=== PATIENT | female | born 1980 | race Caucasian/White ===

== ENCOUNTER 2017-07-11 19:23 | Observation (INO) | payer SELFPAY ==
[2017-07-11] MEDS ORDERED: Morphine 4 MG/ML VIAL ONE (20:25)
[2017-07-11] MEDS ORDERED: Acetaminophen 325 MG TAB PO PRN (21:56)
[2017-07-11] MEDS ORDERED: Morphine 4 MG/ML VIAL SLOW IVP PRN ×2 (21:56→23:04)
[2017-07-11] MEDS ORDERED: Ondansetron ODT 4 MG TAB SL PRN (21:56)
[2017-07-11] MEDS ORDERED: Ondansetron HCl/PF 4 MG/2 ML Vial IVP PRN (21:56)
[2017-07-11] MEDS ORDERED: diphenhydrAMINE 25 MG CAP PO PRN (23:09)
[2017-07-11 23:44] VITALS: BMI 28.3
[2017-07-12 02:11] LABS: #Basophils 0.1 thou/uL (0.0-0.2); #Eosinphils 0.3 thou/uL (0.0-0.7); #Lymphocytes 2.6 thou/uL (1.20-3.40); #Monocytes 0.8 thou/uL (0.11-0.59); #Neutrophils 5.8 thou/uL (1.40-6.50); %Basophils 0.6 % (0.0-1.0); %Lymphocytes 26.9 % (21.0-51.0); %Monocytes 8.4 % (0.0-10.0); %Neutrophils 61.2 % (42.0-75.0); Hemoglobin 12.9 g/dL (12.0-16.0); Mean Corpuscular HGB CONC 35.4 g/dL (32.0-36.0); Mean Corpuscular Hemoglobin 32.3 pg (27.0-31.0); Mean Corpuscular Volume 91.3 fl (81.0-99.0); Mean Platelet Volume 6.6 fL (7.4-10.4); Platelet Count 283 thou/uL (130-400); White Blood Cell (WBC) Count 9.5 thou/uL (4.8-10.8)
[2017-07-12 02:16] LABS: INR-International Normal Ratio 1.1; Prothrombin Time 14.5 SEC (12.0-14.7)
[2017-07-12 02:17] LABS: PTT 31.8 SEC (22.9-36.1)
[2017-07-12 02:30] LABS: ALT (SGPT) 7 U/L (8-55); AST (SGOT) 9 U/L (5-34); Albumin 3.8 g/dL (3.5-5.0); Alkaline Phosphatase 56 U/L (40-150); Anion Gap 7 mmol/L (10-20); BUN (Urea Nitrogen) 10 mg/dL (7.0-18.7); Bilirubin, Total 0.9 mg/dL (0.2-1.2); CK (CPK) 103 U/L (29-168); Calc. Creatinine Clearance 124 mL/min (70-130); Calcium 8.9 mg/dL (7.8-10.44); Carbon Dioxide 28 mmol/L (22-29); Chloride 106 mmol/L (98-107); Estimated GFR-MDRD 89; Glucose 119 mg/dL (70-105); Potassium 3.2 mmol/L (3.5-5.1); Protein, Total 5.8 g/dL (6.0-8.3); Sodium 138 mmol/L (136-145)
--- NOTE | 2017-07-12 04:43 | HP ---
DATE OF ADMISSION: 07/11/2017 The patient was seen and examined on 07/11/2017. CHIEF COMPLAINT: Snake bite. HISTORY OF PRESENT ILLNESS: The patient is a 37-year-old female who presented to [facility] with snake bite to her left foot that happened around 1:30-2:00 p.m. She had signific ant swelling along with bleeding from the puncture site. The pain was 9 to 10/10, more or less const ant, pressure-like. She also had associated swelling in the left leg. No fever, chills, nausea, vom iting, chest pain, or palpitations reported. In the emergency room at [facility], her initial vital signs showed temperature 97.5, respirations 22, pulse rate of 115 with blood pressure 114/86. EKG showed sinus rhythm. Coagulation profile was normal. She received morphine with IV fluids and was transferred to this facility for hospital admis jesus. When she arrived at this facility, the swelling and the pain had somewhat improved. She recei charity another dose of morphine at the emergency room. PAST MEDICAL HISTORY: Reviewed with the patient and none. PAST SURGICAL HISTORY: Reviewed with the patient and none. ALLERGIES: LATEX. CURRENT HOME MEDICATIONS: Reviewed with the patient and none. SOCIAL HISTORY: Currently lives at home with family. No smoking, alcohol or drug use. FAMILY HISTORY: Positive for colon cancer in her mother. REVIEW OF SYSTEMS: The following complete review of systems was negative, unless otherwise mentioned in the HPI or below: Constitutional: Weight loss or gain, ability to conduct usual activities. Sk in: Rash, itching. Eyes: Double vision, pain. ENT/Mouth: Nose bleeding, neck stiffness, pain, te nderness. Cardiovascular: Palpitations, dyspnea on exertion, orthopnea. Respiratory: Shortness of breath, wheezing, cough, hemoptysis, fever or night sweats. Gastrointestinal: Poor appetite, abdom inal pain, heartburn, nausea, vomiting, constipation, or diarrhea. Genitourinary: Urgency, frequenc y, dysuria, nocturia. Musculoskeletal: Pain, swelling. Neurologic/Psychiatric: Anxiety, depressio n. Allergy/Immunologic: Skin rash, bleeding tendency. PHYSICAL EXAMINATION: VITAL SIGNS: As discussed above. GENERAL: A 37-year-old female in mild distress. The pain has significantly improved. HEENT: Head atraumatic, normocephalic. Sclerae are anicteric. Moist mucous membrane, no oral lesio n. NECK: Supple, no JVD, no carotid bruit. LUNGS: Clear to auscultation bilaterally, no wheezing, rales or rhonchi. HEART: S1, S2 present. Regular rate and rhythm. No murmur, rubs, or gallops appreciated. ABDOMEN: Soft, nontender, bowel sounds present. EXTREMITIES: There is swelling of the left foot extending into the left leg. There is tenderness on palpation. Erythema has improved. There was no drainage from the puncture site. There was some nu mbness and tingling on superficial palpation. PSYCHIATRIC: As discussed above. LYMPH NODES: No palpable lymph nodes in the neck and groin. SKIN: As discussed above. PERIPHERAL VASCULAR: As discussed above. LABORATORY FINDINGS: Coagulation profile in normal range. Potassium of 3.2. Fibrinogen was normal. CBC showed WBC 9.5 with hemoglobin of 12.9, platelet 283. EKG by my review as discussed above. IMPRESSION: 1. Snake bite to the left foot, suspected copperhead. 2. Hypokalemia. 3. Chronic kidney disease stage 2. PLAN: The patient is currently admitted to the medical floor. We will continue to monitor. CroFab was not started in the emergency room. We will replace potassium. We will check x-ray of the left f oot. Consult orthopedic per snake bite order set. Acute pain control. No antibiotics needed. Plan of care was discussed with the patient in detail. She stated understanding.
[2017-07-12] MEDS ORDERED: Loperamide HCl 2 MG CAP PO PRN (08:38)
[2017-07-12] MEDS ORDERED: Eucerin (Mineral Oil/Petrolatum,White) 30 gm Jar TOP PRN (08:38)
[2017-07-12] MEDS ORDERED: Senokot 8.6 MG TAB PO PRN (08:38)
[2017-07-12] MEDS ORDERED: Milk Of Magnesia 30 ML UDCUP PO PRN (08:38)
[2017-07-12] MEDS ORDERED: Zolpidem Tartrate 5 MG TAB PO PRN (08:38)
[2017-07-12] MEDS ORDERED: HYDROcodone/Acetaminophen 5/325 mg Tablet PO PRN (08:38)
[2017-07-12] MEDS ORDERED: Acetaminophen 325 MG TAB PO PRN (08:38)
[2017-07-12] MEDS ORDERED: Ondansetron HCl/PF 4 MG/2 ML Vial IVP PRN (08:38)
[2017-07-12] MEDS ORDERED: Chloraseptic Spray 180 ml Bottle PO PRN (08:38)
[2017-07-12] MEDS ORDERED: hydrALAZINE 20 MG/ML VIAL SLOW IVP PRN (08:38)
[2017-07-12] MEDS ORDERED: Artificial Tears 18 DROP/0.9 ML EA EYE PRN (08:38)
[2017-07-12] MEDS ORDERED: Mag-Al 1200 mg/1200 mg/30 ML UDCUP PO PRN (08:38)
[2017-07-12] MEDS ORDERED: Loratadine 10 MG TAB PO PRN (08:38)
[2017-07-12] MEDS ORDERED: Diabetic Tussin 200 MG/10 ML UDCUP PO PRN (08:38)
[2017-07-12] MEDS ORDERED: Ondansetron ODT 4 MG TAB PO PRN (08:38)
[2017-07-12] MEDS ORDERED: Sodium Chloride 0.65% Nasal 44 ML BOT EA NARE PRN (08:38)
[2017-07-12] MEDS ORDERED: Famotidine 20 MG TAB PO SCH (09:00)
--- NOTE | 2017-07-12 09:02 | CON ---
DATE OF CONSULTATION: 07/12/2017 REQUESTING PHYSICIAN: Dr. Malachi Gonzalez CONSULTING PHYSICIAN: Dr. Raghavendra Felix REASON FOR ADMISSION: Snake bites to the left foot. HISTORY OF PRESENT ILLNESS: This is a 37-year-old female who states that she was out yesterday in [facility] with her children building a fort when she stepped in an area where multiple snakes bit her l eft foot. She states this happened around 2 o'clock p.m. She states she believes there were 3-4 sna kes that bit her at once. She states she was wearing slides with socks. She reports swelling along with bleeding from the puncture sites. She states that she tried to express venom at the time. She initially presented to the emergency room in [place] where her vital signs were stable. She rec eived morphine at that time with IV fluids and then was transferred to our facility for hospital admi ssion. When she arrived at our facility, the swelling and pain had somewhat improved. She received morphine in the emergency department. Per patient's history this morning, the patient states that chela phelan was not given CroFab because the symptoms appeared to be improving. She states that CroFab was als o an expensive drug and she elected against this. At the current time, the patient reports some pain that she believes is because the pain meds have recently worn off. Overall, she states she feels be tter from yesterday. PAST SURGICAL HISTORY: Reviewed and negative. PAST SURGICAL HISTORY: Reviewed and negative. ALLERGIES: LATEX. CURRENT HOME MEDICATIONS: Reviewed and negative. SOCIAL HISTORY: The patient currently lives at home with family. She denies any smoking, alcohol or illicit drug use. FAMILY HISTORY: Noncontributory. REVIEW OF SYSTEMS: Ten point review of systems conducted and otherwise negative except for stated ab ove. PHYSICAL EXAMINATION: VITAL SIGNS: Temperature 97.8 degrees, pulse of 92, respiratory rate of 16, blood pressure of 109/73 . GENERAL: The patient is awake and alert and oriented x3. She is in no acute distress. HEENT: Head is normocephalic, atraumatic. NECK: Supple. LUNGS: Breathing is nonlabored. EXTREMITIES: The left lower extremity was examined. There is soft tissue swelling. No significant erythema noted. There is a puncture wound to the lateral heel region that appears to have a superfic ial hematoma. This is less than 0.5 cm in size. No other puncture wounds are visible at the time of my examination. The patient able to actively move her knee, ankle, foot and toes. Sensation decrea sed but intact. No bony tenderness to palpation. Compartments are soft. LABORATORY FINDINGS: Laboratory findings including a CBC show white blood cell count of 9.5, hemoglo bin of 12.9, hematocrit 36.5 and platelets of 283. IMAGING STUDIES: Imaging studies including x-rays of the left foot; the patient has declined x-rays today. ASSESSMENT AND PLAN: Multiple snake bites to the left foot. The patient states these were copperhe ads. At this time, she does appear improved. No antibiotics were given to the patient, nor was CroF ab. Compartments are soft without any evidence of compartment syndrome from an orthopedic standpoint . Please reconsult the Orthopedic Service and we will be happy to answer any questions or see the shahab bower. She is stable from an orthopedic standpoint. Thank you for the consultation.
[2017-07-12] MEDS: Potassium Chloride 20 MEQ TAB PO SCH ×2 (09:14→17:18)
--- NOTE | 2017-07-12 11:14 | PDOC.PN ---
- Subjective Encounter Start Date: 07/12/17 Encounter Start Time: 09:30 Patient seen and examined. No new complaints. No overnight events has left leg pain with walking - Objective MAR Reviewed: Yes Vital Signs & Weight: Vital Signs (12 hours) Temp Pulse Resp BP Pulse Ox 07/12/17 08:10 98 F 80 18 129/81 98 07/12/17 08:00 98 F 80 18 07/12/17 04:22 97.8 F 92 16 109/73 100 07/12/17 00:18 97.7 F 77 20 109/65 99 07/11/17 23:47 98 F 81 16 Weight Weight 165 lb 5.547 oz Result Diagrams: 07/12/17 01:57 07/12/17 01:57 Phys Exam - Physical Examination Constitutional: NAD HEENT: PERRLA, moist MMs, sclera anicteric Neck: no JVD, supple Respiratory: no wheezing, no rales, no rhonchi Cardiovascular: RRR, no significant murmur, no rub Gastrointestinal: soft, non-tender, no distention, positive bowel sounds Musculoskeletal: no edema, pulses present left foot and leg swelling Neurological: non-focal, normal sensation, moves all 4 limbs Psychiatric: normal affect, A&O x 3 Skin: no rash, normal turgor Dx/Plan (1) Swelling of left lower extremity Code(s): M79.89 - OTHER SPECIFIED SOFT TISSUE DISORDERS Status: Acute (2) Hypokalemia Code(s): E87.6 - HYPOKALEMIA Status: Acute (3) Snake bite Code(s): W59.11XA - BITTEN BY NONVENOMOUS SNAKE, INITIAL ENCOUNTER Status: Acute (4) CKD (chronic kidney disease) stage 2, GFR 60-89 ml/min Code(s): N18.2 - CHRONIC KIDNEY DISEASE, STAGE 2 (MILD) Status: Chronic - Plan cont current plan of care * control pain today * monitor swelling * medication reviewed as below * symptomatic treatment * if stable, will consider discharge tomorrow. Review of Systems - Review of Systems Constitutional: negative: fever, chills, sweats, weakness, malaise, other Eyes: negative: Pain, Vision Change, Conjunctivae Inflammation, Eyelid Inflammation, Redness, Other ENT: negative: Ear Pain, Ear Discharge, Nose Pain, Nose Discharge, Nose Congestion, Mouth Pain, Mouth Swelling, Throat Pain, Throat Swelling, Other Respiratory: negative: Cough, Dry, Shortness of Breath, Hemoptysis, SOB with Excertion, Pleuritic Pain, Sputum, Wheezing Cardiovascular: negative: chest pain, palpitations, orthopnea, paroxysmal nocturnal dyspnea, edema, light headedness, other Gastrointestinal: negative: Nausea, Vomiting, Abdominal Pain, Diarrhea, Constipation, Melena, Hematochezia, Other Genitourinary: negative: Dysuria, Frequency, Incontinence, Hematuria, Retention , Other Musculoskeletal: Leg Pain, Foot Pain. negative: Neck Pain, Shoulder Pain, Arm Pain, Back Pain, Hand Pain, Other Neurological: negative: Weakness, Numbness, Incoordination, Change in Speech, Confusion, Seizures, Other - Medications/Allergies Allergies/Adverse Reactions: Allergies Allergy/AdvReac Type Severity Reaction Status Date / Time latex Allergy Verified 07/11/17 17:54 Medications: Current Medications Acetaminophen (Tylenol) 650 mg PO Q4H PRN PRN Reason: Headache/Fever or Mild Pain Hydrocodone Bitart/Acetaminophen ([place] 5/325) 1 tab PO Q4H PRN PRN Reason: Moderate Pain (4-6) Al Hydroxide/Mg Hydroxide (Maalox) 15 ml PO Q4H PRN PRN Reason: Heartburn or Indigestion Artificial Tears (Tears Naturale) 0 drop EA EYE PRN PRN PRN Reason: Dry Eyes Diphenhydramine HCl (Benadryl) 25 mg PO Q6H PRN PRN Reason: Itching & Insomnia Famotidine (Pepcid) 20 mg PO BID KRISTIN Last Admin: 07/12/17 10:57 Dose: Not Given Guaifenesin (Robitussin Sf) 200 mg PO Q4H PRN PRN Reason: Cough Hydralazine HCl (Apresoline) 10 mg SLOW IVP Q4H PRN PRN Reason: Systolic BP > 180 Loperamide HCl (Imodium) 2 mg PO PRN PRN PRN Reason: Diarrhea/Loose Stools Loratadine (Claritin) 10 mg PO DAILYPRN PRN PRN Reason: Sinus Symptoms Magnesium Hydroxide (Milk Of Magnesium) 30 ml PO DAILYPRN PRN PRN Reason: Constipation Mineral Oil/White Petrolatum (Eucerin Cream) 0 gm TOP BIDPRN PRN PRN Reason: Dry Skin Morphine Sulfate (Morphine) 2 mg SLOW IVP Q4H PRN PRN Reason: Pain Stop: 07/12/17 23:05 Last Admin: 07/12/17 09:16 Dose: 2 mg Ondansetron HCl (Zofran Odt) 4 mg PO Q6H PRN PRN Reason: Nausea/Vomiting Ondansetron HCl (Zofran) 4 mg IVP Q6H PRN PRN Reason: Nausea/Vomiting Phenol (Chloraseptic [place] 180 Ml Bot) 0 ml PO PRN PRN PRN Reason: Sore Throat Potassium Chloride (K-Dur) 20 meq PO BID-[facility] Last Admin: 07/12/17 09:14 Dose: 20 meq Senna (Senokot) 2 tab PO HSPRN PRN PRN Reason: Constipation Sodium Chloride (Flush - Normal Saline) 10 ml IVF Q12HR [facility] Last Admin: 07/12/17 09:16 Dose: 10 ml Sodium Chloride (Flush - Normal Saline) 10 ml IVF PRN PRN PRN Reason: Saline Flush Sodium Chloride ([place] Nasal [place] 0.65%) 0 ml EA NARE QIDPRN PRN PRN Reason: Nasal Congestion Zolpidem Tartrate (Ambien) 5 mg PO HSPRN PRN PRN Reason: Insomnia
[2017-07-12 16:10] VITALS: BP 137/93; TEMP 97.7
--- NOTE | 2017-07-12 22:27 | DIS ---
DATE OF ADMISSION: 07/11/2017 DATE OF DISCHARGE: 07/12/2017 DISCHARGE DISPOSITION: Home. PRIMARY DISCHARGE DIAGNOSES: Snake bite, left lower extremity swelling. SECONDARY DISCHARGE DIAGNOSIS: None. PRIMARY PROCEDURE/OPERATION: None. RADIOLOGICAL INVESTIGATION: None. SIGNIFICANT LABORATORY DATA: CBC normal, coagulation profile normal. Potassium 3.2. DISCHARGE MEDICATIONS: Patient is advised to take ibuprofen as needed basis. CONTRAINDICATIONS: None. CODE STATUS: FULL CODE. INPATIENT CONSULTANTS: Orthopedic physician. TEST RESULTS PENDING ON DISCHARGE: None. ALLERGIES: LATEX. DISCHARGE PLAN: Post hospital, the patient will follow up with primary care physician as needed. HOSPITAL COURSE: A 37-year-old female, who had copperhead bite on the left foot and subsequently she was having swelling in left foot and left lower extremity. This patient did not require any antiven om or any antibiotic therapy. The patient was doing well and she was cleared for discharge today. T he patient requested herself to go home today.
== END 2017-07-12 19:44 | disposition home or self-care (01) ==
LOC: ERS 19:23 → SURG A 21:41
PROVIDERS: ADMIT Internal Medicine; ATTEND Internal Medicine
DX: T63.091A Toxic effect of venom of other snake, accidental (unintentional), initial encounter (principal); R22.42 Localized swelling, mass and lump, left lower limb; E87.6 Hypokalemia; N18.2 Chronic kidney disease, stage 2 (mild); Z91.040 Latex allergy status
CPT/HCPCS: 36415; 80053; 82550; 85025; 85384; 93005; 96374; 96376; A4216; G0378; J2270; Q0162